=== PATIENT | male | born 1980 | race Caucasian/White ===

== ENCOUNTER 2018-01-13 18:03 | Emergency (ER) | payer SELFPAY ==
[~2018-01-13] VITALS: Ht 188 cm; Wt 113.4 kg
[2018-01-13 18:03] VITALS: BP_SYST 141
[2018-01-13 18:20] VITALS: BP_SYST 135
== END 2018-01-13 18:20 | disposition home or self-care (01) ==
LOC: SED 18:03
DX: K02.9 Dental caries, unspecified (principal)
CPT/HCPCS: 99283

== ENCOUNTER 2019-02-09 03:59 | Emergency (ER) | payer SELFPAY ==
[~2019-02-09] VITALS: Ht 188 cm; Wt 113.4 kg
[2019-02-09 04:07] VITALS: BP_SYST 140
[2019-02-09 05:14] LABS: BILIRUBIN,URINE NEGATIVE (NEGATIVE); BLOOD, URINE NEGATIVE (NEGATIVE); CLARITY/URINE CLEAR (CLEAR); COLOR,URINE YELLOW (YELLOW); GLUCOSE,URINE NEGATIVE (NEGATIVE); KETONES,URINE NEGATIVE (NEGATIVE); LEUKOCYTE ESTERASE ,URINE NEGATIVE (NEGATIVE); NITRITE, URINE NEGATIVE (NEGATIVE); PH,URINE 6.5 (5.0-8.0); PROTEIN URINE NEGATIVE (NEGATIVE); UROBILINOGEN,URINE 0.2 (0.2-1.0)
[2019-02-09 05:24] LABS: BASOPHILS # (AUTO) 0.1 K/uL (0.0-0.2); BASOPHILS % (AUTO) 0.9 % (0.0-2.0); EOSINOPHILS # (AUTO) 0.2 K/uL (0.0-0.4); EOSINOPHILS % (AUTO) 2.2 % (0.0-4.0); HEMATOCRIT 47.8 % (36-54); HEMOGLOBIN 16.3 g/dL (14.0-18.0); LYMPHOCYTES # (AUTO) 2.1 K/uL (1.0-5.5); LYMPHOCYTES % (AUTO) 25.3 % (20.5-51.5); MEAN CORPUSCULAR HEMOGLOBIN 29 pg (27-31); MEAN CORPUSCULAR HGB CONC 34 % (32-36); MEAN CORPUSCULAR VOLUME 85 fL (79.0-98.0); MONOCYTES # (AUTO) 0.7 K/uL (0.0-1.0); MONOCYTES % (AUTO) 9.2 % (1.7-9.3); NEUTROPHILS # (AUTO) 5.1 K/uL (1.8-7.7); NEUTROPHILS % (AUTO) 62.4 % (40.0-70.0); PLATELET COUNT (AUTO) 272 K/uL (130-430); RED BLOOD CELL COUNT(AUTO) 5.61 MIL/uL (4.2-6.2); RED CELL DISTRIBUTION WIDTH 13.6 % (9.0-15.0); WHITE BLOOD COUNT (AUTO) 8.2 K/uL (4.8-10.8)
[2019-02-09 05:25] LABS: BARBITURATE, URINE NEGATIVE (NEG <=200); METHAMPHETAMINES SCREEN,URINE POSITIVE (NEG <=500); URINE AMPHETAMINE POSITIVE (NEG <=500)
[2019-02-09 05:26] LABS: BENZODIAZEPINE, URINE NEGATIVE (NEG <=150); CANNABINOID, URINE NEGATIVE (NEG <=50); COCAINE, URINE NEGATIVE (NEG <=150); OPIATE, URINE NEGATIVE (NEG <=100); PHENCYCLIDINE SCREEN,URINE NEGATIVE (NEG <=25); UR TRICYCLIC ANTIDEPRESSANTS NEGATIVE (NEG <=300); URINE METHADONE NEGATIVE (NEG <=200); URINE OXYCODONE SCREEN NEGATIVE (NEG <=100); URINE PROPOXYPHENE SCREEN NEGATIVE (NEG <=300)
[2019-02-09 05:39] LABS: ANION GAP 6 (5-15); CALCIUM 9.7 mg/dL (8.4-11.0); CHLORIDE 100 mmol/L (98-107); CREATININE 0.99 mg/dL (0.55-1.30); POTASSIUM 4.2 mmol/L (3.5-5.1); UREA NITROGEN, BLOOD 10 mg/dL (8-21)
[2019-02-09 05:44] LABS: ALBUMIN 4.1 g/dL (3.4-4.8); TOTAL BILIRUBIN 1.3 mg/dL (0.0-1.0)
[2019-02-09 05:45] LABS: ALCOHOL, BLOOD < 3 mg/dL (<10)
[2019-02-09 05:58] LABS: ALANINE AMINOTRANSFERASE 64 U/L (12-78); ASPARTATE AMINOTRANSFERASE 34 U/L (10-37); GLUCOSE 117 mg/dL (70-99); SODIUM SERUM 133 mmol/L (136-145)
[2019-02-09 05:59] LABS: GFR AFRICAN AMERICAN 0 mL/min (>90)
== END 2019-02-09 07:20 | disposition left against medical advice (07) ==
LOC: SED 03:59
DX: R11.0 Nausea (principal); Z53.21 Procedure and treatment not carried out due to patient leaving prior to being seen by health care provider
CPT/HCPCS: 36415; 80053; 80307; 81003; 85025; 99281; G0482; 99283

== ENCOUNTER 2020-11-09 01:22 | Emergency (ER) | payer BC ==
[~2020-11-09] VITALS: Ht 188 cm; Wt 113.4 kg
--- NOTE | 2020-11-09 01:22 | NUR ---
Patient to ER bed 6 to gown for evaluation. Side rails up.
--- NOTE | 2020-11-09 01:23 | NUR ---
Dr. Massey bedside for pt eval
--- NOTE | 2020-11-09 01:25 | NUR ---
# 20 gauge angiocath placed to Right AC. Use of asceptic technique. Opsite placed over site. Blood return noted. Flushed with 10 cc of normal saline. No evidence of infiltration noted. Patient tolerated well.
--- NOTE | 2020-11-09 01:25 | NUR ---
# 18 gauge angiocath placed to Left AC. Use of asceptic technique. Opsite placed over site. Blood return noted. Flushed with 10 cc of normal saline. No evidence of infiltration noted. Patient tolerated well.
[2020-11-09] MEDS ORDERED: NALOXONE HCL 0.4 MG/ML AMP (NARCAN) IVP ONE (01:30)
[2020-11-09] MEDS ORDERED: NACL 0.9% 1,000 ML IV ONE (01:30)
--- NOTE | 2020-11-09 01:30 | NUR ---
Narcan 0.4 mg given IVP, patient respirations 18 bpm on monitor. Patient gradually waking up, opened eyes briefly.
--- NOTE | 2020-11-09 01:33 | NUR ---
Patient opened eyes completely but lethargic.
--- NOTE | 2020-11-09 01:40 | NUR ---
Patient stated name, "Davidson", with slurred speech, when asked.
--- NOTE | 2020-11-09 01:42 | NUR ---
Asked patient to push self up, patient pushed both legs without difficulty.
--- NOTE | 2020-11-09 01:45 | NUR ---
TO CT SCAN OF HEAD WITHOUT CONTRAST.
[2020-11-09 01:47] LABS: BILIRUBIN,URINE NEGATIVE (NEGATIVE); CLARITY/URINE CLEAR (CLEAR); COLOR,URINE YELLOW (YELLOW); GLUCOSE,URINE NEGATIVE (NEGATIVE); KETONES,URINE NEGATIVE (NEGATIVE); LEUKOCYTE ESTERASE ,URINE NEGATIVE (NEGATIVE); NITRITE, URINE NEGATIVE (NEGATIVE); PROTEIN URINE 1+ (NEGATIVE); UROBILINOGEN,URINE 0.2 (0.2-1.0)
[2020-11-09 01:54] LABS: BASOPHILS # (AUTO) 0.1 K/uL (0.0-0.2); BASOPHILS % (AUTO) 0.9 % (0.0-2.0); EOSINOPHILS # (AUTO) 0.2 K/uL (0.0-0.4); EOSINOPHILS % (AUTO) 3.2 % (0.0-4.0); LYMPHOCYTES # (AUTO) 3.6 K/uL (1.0-5.5); LYMPHOCYTES % (AUTO) 49.2 % (20.5-51.5); MEAN CORPUSCULAR HEMOGLOBIN 29 pg (27-31); MEAN CORPUSCULAR HGB CONC 33 % (32-36); MEAN CORPUSCULAR VOLUME 88 fL (79.0-98.0); MONOCYTES # (AUTO) 0.5 K/uL (0.0-1.0); MONOCYTES % (AUTO) 6.2 % (1.7-9.3); NEUTROPHILS % (AUTO) 40.5 % (40.0-70.0); PLATELET COUNT (AUTO) 242 K/uL (130-430); RED BLOOD CELL COUNT(AUTO) 5.46 MIL/uL (4.2-6.2); RED CELL DISTRIBUTION WIDTH 12.4 % (9.0-15.0); WHITE BLOOD COUNT (AUTO) 7.4 K/uL (4.8-10.8)
[2020-11-09 01:54] LABS: BLOOD, URINE TRACE (NEGATIVE)
[2020-11-09 01:56] LABS: BACTERIA,URINE FEW /HPF (None Seen); WBC,URINE 0-3 /HPF (0-3)
[2020-11-09 02:06] LABS: ANION GAP 14 (5-15); CALCIUM 8.1 mg/dL (8.4-11.0); CHLORIDE 103 mmol/L (98-107); CREATININE 1.15 mg/dL (0.55-1.30); GLUCOSE 186 mg/dL (70-99); POTASSIUM 3.3 mmol/L (3.5-5.1); SODIUM SERUM 142 mmol/L (136-145); UREA NITROGEN, BLOOD 10 mg/dL (8-21)
--- NOTE | 2020-11-09 02:10 | NUR ---
BACK FROM CT SCAN OF HEAD WITHOUT CONTRAST. WHEN ASKED IF HE KNEW WHY HE WAS HERE, PT STATED HE DID NOT KNOW.
--- NOTE | 2020-11-09 02:14 | NUR ---
DR DIEZ TALKED WITH FRIEND HORACE WHO STATED THAT PT WAS SMOKING FENTANYL EARLIER.
[2020-11-09 02:15] LABS: ALANINE AMINOTRANSFERASE 107 U/L (12-78); ALBUMIN 4.2 g/dL (3.4-4.8); ASPARTATE AMINOTRANSFERASE 83 U/L (10-37); TOTAL BILIRUBIN 0.7 mg/dL (0.0-1.0)
[2020-11-09 02:16] LABS: GFR AFRICAN AMERICAN 91 mL/min (>90)
--- NOTE | 2020-11-09 03:00 | NUR ---
O2 CHANGED FROM 25L/MIN NRBM TO 15L/MIN NRBM. POX 100%.
--- NOTE | 2020-11-09 04:00 | NUR ---
DOZES ON AND OFF. MORE ALERT. VS STABLE. TURNS SELF WELL.
[2020-11-09 05:37] LABS: BARBITURATE, URINE NEGATIVE (NEG <=200); BENZODIAZEPINE, URINE NEGATIVE (NEG <=150); CANNABINOID, URINE NEGATIVE (NEG <=50); COCAINE, URINE NEGATIVE (NEG <=150); METHAMPHETAMINES SCREEN,URINE POSITIVE (NEG <=500); OPIATE, URINE NEGATIVE (NEG <=100); PHENCYCLIDINE SCREEN,URINE NEGATIVE (NEG <=25); UR TRICYCLIC ANTIDEPRESSANTS NEGATIVE (NEG <=300); URINE AMPHETAMINE POSITIVE (NEG <=500); URINE METHADONE NEGATIVE (NEG <=200); URINE OXYCODONE SCREEN NEGATIVE (NEG <=100); URINE PROPOXYPHENE SCREEN NEGATIVE (NEG <=300)
--- NOTE | 2020-11-09 06:00 | NUR ---
O2 CHANGED TO 3L/MIN/NC. POX 98%. DENIES SOB, PAIN, DISTRESS. VITAL SIGNS : HR 90, BP 129/65, RESP 20, TEMP 97.2, TEMPORAL ARTERY SCAN.
[2020-11-09 06:30] VITALS: BP_SYST 129
--- NOTE | 2020-11-09 06:30 | NUR ---
Patient given written and verbal discharge instructions and verbalizes understanding. ER DR RG SMITH discussed with patient the results and treatment provided. Patient in stable condition. ID arm band removed. IV catheter removed intact and dressing applied, no active bleeding. Patient educated on pain management and to follow up with PMD. Pain Scale . Opportunity for questions provided and answered. Medication side effect fact sheet provided.
== END 2020-11-09 06:30 | disposition home or self-care (01) ==
LOC: SED 01:22
DX: T40.411A Poisoning by fentanyl or fentanyl analogs, accidental (unintentional), initial encounter (principal); F10.10 Alcohol abuse, uncomplicated; Y92.89 Other specified places as the place of occurrence of the external cause; Z88.0 Allergy status to penicillin; Y90.6 Blood alcohol level of 120-199 mg/100 ml
CPT/HCPCS: 36415; 70450; 71045; 76376; 80053; 80307; 81000; 82550; 84484; 85025; 93005; 96361; 96374; 99291; G0482; J7030

== ENCOUNTER 2021-08-01 02:38 | Emergency (ER) | payer BC ==
[~2021-08-01] VITALS: Ht 182.9 cm; Wt 113.4 kg
--- NOTE | 2021-08-01 02:40 | NUR ---
Placed in room 7 . Placed on electrotyper apprentice, blood pressure machine and pulse oximeter. To gown for exam. Side rails up. Report given to BLACK MARTINEZ.
[2021-08-01 02:45] VITALS: BP_SYST 108
[2021-08-01] MEDS ORDERED: NACL 0.9% 1,000 ML IV ONE (02:45)
--- NOTE | 2021-08-01 02:45 | NUR ---
Received patient to ER w/ c/o overdose on alcohol and fentanyl. patient though sleepy but easily arousable answering simple questions. Iv h.l. to left hand 20g placed. patient to be medicated w/ narcan ivp. bed to low position sr up. Patient resting quietly. No acute distress noted. Vital signs within normal range.
[2021-08-01] MEDS ORDERED: NALOXONE HCL 0.4 MG/ML AMP (NARCAN) IVP ONE (03:00)
--- NOTE | 2021-08-01 03:08 | NUR ---
patient medicated w/ narcan 0.4mg ivp. patient more alert/awake, oriented to name, place, and event. patient had called his friends to pick him up. patient informed of the importance of staying in ER for observation. patient though awake/alert x3 refuses to stay and request to go home. patient w/ steady gait.
[2021-08-01] MEDS ORDERED: NALO4SPR NS (03:15)
[2021-08-01 03:20] VITALS: BP_SYST 105
--- NOTE | 2021-08-01 03:20 | NUR ---
Patient does not wish to proceed with medical care recommended by MD Martinez. Patient given information related to possible complications, up to and including , which could occur as a result of leaving hospital at this time. Patient verbalizes understanding of risks involved leaving against medical advice. Patient has signed AMA form. left er ambulatory accompanied w/ friends
== END 2021-08-01 03:20 | disposition left against medical advice (07) ==
LOC: SED 02:38
DX: T40.411A Poisoning by fentanyl or fentanyl analogs, accidental (unintentional), initial encounter (principal); Z88.0 Allergy status to penicillin; Z79.899 Other long term (current) drug therapy; Y92.89 Other specified places as the place of occurrence of the external cause
CPT/HCPCS: 96374; 99283; J2310